=== PATIENT | female | born 1975 | race Two or more races ===

== ENCOUNTER 2020-06-01 06:02 | Day surgery (SDC) | payer OTHER ==
[~2020-06-01 06:02] MED LIST: HYDROCHLOROTH12.5 MG PO
== END 2020-06-01 12:35 | disposition home or self-care (01) ==
LOC: CIR.AMB 06:02
PROVIDERS: ATTEND Student in an Organized Health Care Education/Training Program
DX: N83.291 Other ovarian cyst, right side (principal); N83.292 Other ovarian cyst, left side; Z20.828 Contact with and (suspected) exposure to other viral communicable diseases

== ENCOUNTER 2020-08-25 11:00 | Inpatient (IN) | payer OTHER ==
[~2020-08-25] VITALS: Ht 162.6 cm; Wt 82.6 kg
== END 2020-09-01 17:13 | disposition home or self-care (01) | DRG 743 ==
LOC: OB/GYN 08-30 06:20 → O/R 08-30 06:20 → OB/GYN 08-30 08:00
PROVIDERS: ADMIT Specialist; ATTEND Specialist
PROC: 0UT20ZZ Resection of Bilateral Ovaries, Open Approach (ICD-10-PCS; 2020-08-30)
PROC: 0UT70ZZ Resection of Bilateral Fallopian Tubes, Open Approach (ICD-10-PCS; 2020-08-30)
PROC: 0UT90ZZ Resection of Uterus, Open Approach (ICD-10-PCS; principal; 2020-08-30 12:30)
DX: N72 Inflammatory disease of cervix uteri (principal); N80.0 Endometriosis of uterus; N80.1 Endometriosis of ovary; N80.2 Endometriosis of fallopian tube; N83.11 Corpus luteum cyst of right ovary; N83.8 Other noninflammatory disorders of ovary, fallopian tube and broad ligament; N80.3 Endometriosis of pelvic peritoneum; K66.0 Peritoneal adhesions (postprocedural) (postinfection)